=== PATIENT | male | born 1985 | race African-American/Black ===

== ENCOUNTER 2018-04-08 15:41 | Emergency (ER) | payer OTHER ==
[~2018-04-08] VITALS: Ht 172.7 cm; Wt 102.7 kg
[2018-04-08] MEDS ORDERED: ERYTHROMYC1 APPLICAT LEFT EYE (20:10)
[2018-04-08 21:00] VITALS: BP 129/70
== END 2018-04-08 21:02 ==
LOC: EME 15:41
PROC: 08QRXZZ Repair Left Lower Eyelid, External Approach (ICD-10-PCS; principal; 2018-04-08)
DX: I10 Essential (primary) hypertension (principal); S01.112A Laceration without foreign body of left eyelid and periocular area, initial encounter; W50.0XXA Accidental hit or strike by another person, initial encounter; Y93.67 Activity, basketball; Y92.147 Courtyard of prison as the place of occurrence of the external cause
CPT/HCPCS: 99281; 99284